=== PATIENT | male | born 2000 | race Caucasian/White ===

== ENCOUNTER → 2019-10-07 | Outpatient (CLI) | payer BC ==
--- NOTE | 2019-10-07 16:17 | RAD ---
Three-view left knee radiographs 10/07/2019 CLINICAL HISTORY: Left knee pain. AP, lateral and oblique digital radiographs of the left knee were obtained. Comparison study is dated 02/13/2017. No fracture or dislocation left knee is seen. No significant degenerative changes are noted. There is no radiographic evidence of a joint effusion. IMPRESSION: No fracture or dislocation of the left knee is seen. Electronically signed by: Ramy Garcia MD (10/07/2019 4:14 PM) [id number]
== END | disposition home or self-care (01) ==
LOC: RAD 13:41
PROVIDERS: ATTEND Family Medicine
DX: M25.562 Pain in left knee (principal)
CPT/HCPCS: 73562

== ENCOUNTER → 2019-10-21 | Outpatient (CLI) | payer BC ==
--- NOTE | 2019-10-21 12:41 | KCIC ---
Examination: MRI of the left knee without contrast HISTORY: History of left knee pain COMPARISON: None available Technique: Multiplanar multisequence MR imaging of the left knee was performed without contrast FINDINGS: There is increased T2 signal identified in the anterior cruciate ligament likely ganglion cyst extending from within the fibers of the anterior cruciate ligament and extending anteriorly with multiloculated cystic structure measuring 4.2 cm extending anterior to the anterior horn of the medial meniscus and extending medially probably a ganglion cyst. The posterior cruciate ligament appears intact. The medial meniscus, lateral meniscus appears intact. The medial collateral ligament is intact. The lateral collateral ligament complex appearing the fibular collateral ligament, biceps femoris tendon, popliteus tendon appear intact. The extensor mechanism appears intact. The medial retinaculum, lateral retinaculum appears intact. The cartilage in the medial, lateral, patellofemoral, grossly appears unremarkable. Minimal increased signal identified in the infrapatellar tendon at its attachment to the patella could be mild tendinosis. 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 IMPRESSION: 1. Increased T2 signal identified in the anterior fibers of the anterior cruciate ligament with a multiloculated cystic structure measuring 4.2 cm extending from the anterior aspect of the anterior cruciate ligament and traversing medially and anterior to the anterior horn of the medial meniscus probably ganglion cyst. 2. Mild tendinosis infrapatellar tendon. Electronically signed by: Artur Weeks MD (10/21/2019 12:39 PM) [id number]
== END ==
LOC: KCIC MRI 10:47
PROVIDERS: ATTEND Family Medicine
DX: M76.52 Patellar tendinitis, left knee (principal)
CPT/HCPCS: 73721